=== PATIENT | male | born 2005 | race Asian ===

== ENCOUNTER 2025-03-05 22:21 | Emergency (ER) | payer OTHER ==
[2025-03-05] MEDS ORDERED: Famotidine/PF 20 mg/2ml Vial ONE (23:04)
[2025-03-05] MEDS ORDERED: Dexamethasone 10 MG/ML VIAL ONE (23:04)
== END 2025-03-06 00:45 | disposition home or self-care (01) ==
LOC: ERS 22:21
DX: T78.05XA Anaphylactic reaction due to tree nuts and seeds, initial encounter (principal)
CPT/HCPCS: 96361; 96374; 96375; J1100